=== PATIENT | female | born 1950 | race Caucasian/White ===

== ENCOUNTER → 2020-09-15 | Outpatient (CLI) | payer MEDICARE ==
[~2020-09-15] MED LIST: AMLO5 PO; ASPI81CH PO; CENTRUM SILVER1 EAC4 PO; CIPR500 PO; CLOP75 PO; GLIP5 PO; LEVO-T112 MCG PO; LISI5 PO; LITH300C PO; METF500 PO; METO25ER PO; NITR.4SL SL; RISP1 PO; VITAMIN D31000 UNIT PO; ZOLP10 PO
== END | disposition home or self-care (01) ==
LOC: LAB SHORT 15:02 → LAB 15:02
DX: R39.15 Urgency of urination (principal)
CPT/HCPCS: 87086

== ENCOUNTER 2021-10-13 09:50 | Observation (INO) | payer MEDICARE ==
[~2021-10-13] VITALS: Ht 152.4 cm; Wt 52.2 kg
[2021-10-13 10:42] LABS: BASOPHILS ABSOLUTE AUTO 0.04 K/mm3 (0.00-0.23); BASOPHILS PERCENT AUTO 1 % (0-2); EOSINOPHILS ABSOLUTE AUTO 0.29 K/mm3 (0.00-0.68); EOSINOPHILS PERCENT AUTO 4 % (0-6); Hematocrit 36.1 % (33.0-51.0); Hemoglobin 12.1 g/dL (11.5-16.0); IMMATURE GRAN ABSOLUTE AUTO 0.02 K/mm3 (0.00-0.10); IMMATURE GRAN PERCENT AUTO 0 % (0-1); LYMPHOCYTES ABSOLUTE AUTO 1.75 K/mm3 (0.84-5.20); LYMPHOCYTES PERCENT AUTO 21 % (21-46); MONOCYTES ABSOLUTE AUTO 0.58 K/mm3 (0.16-1.47); MONOCYTES PERCENT AUTO 7 % (4-13); Mean Corpuscular HGB 29.8 pg (26.0-34.0); Mean Corpuscular HGB Conc 33.5 g/dL (31.5-36.5); Mean Corpuscular Volume 89 fL (80-100); Mean Platelet Volume 11.2 fL (9.1-12.4); NEUTROPHILS ABSOLUTE AUTO 5.58 K/mm3 (1.96-9.15); NEUTROPHILS PERCENT AUTO 68 % (41-73); Platelet Count 249 K/mm3 (150-400); RDW Coefficient Variation 12.2 % (11.7-14.2); RDW Standard Deviation 40.1 fL (35.1-46.3); Red Blood Cell Count 4.06 M/mm3 (3.80-5.20); White Blood Cell Count 8.26 K/mm3 (4.00-11.30)
[2021-10-13 10:59] LABS: Ethanol (Alcohol), Blood, Med <3 mg/dL; Salicylate 5.4 mg/dL (2.8-20.0)
[2021-10-13 11:04] LABS: Lithium 1.34 mmol/L (0.60-1.20)
[2021-10-13 11:15] LABS: Acetaminophen, Random <2.0 ug/mL (10.0-30.0); Alanine Aminotransfer (ALT/SGP 15 U/L (12-78); Albumin/Globulin Ratio 1.2 (0.8-1.8); Alk Phos 73 U/L (50-136); Anion Gap 5 mmol/L (6-16); Aspartate Aminotrans (AST/SGOT 17 U/L (12-37); Bilirubin, Total 0.5 mg/dL (0.1-1.0); Blood Urea Nitrogen 28 mg/dL (8-24); Bun/Creatinine Ratio 20.4 (12.0-20.0); CO2, Blood 24 mmol/L (21-32); Calcium, Blood 9.6 mg/dL (8.5-10.1); Chloride, Blood 108 mmol/L (98-108); Creatinine, Blood 1.37 mg/dL (0.40-1.00); Globulin, Blood 3.3 g/dL (2.2-4.0); Glomerular Filtration Rate 41 (60-); Glucose, Blood 117 mg/dL (70-99); Potassium, Blood 4.1 mmol/L (3.5-5.5); Sodium, Blood 137 mmol/L (136-145); Total Protein, Blood 7.3 g/dL (6.4-8.2)
[2021-10-13 11:42] LABS: Source, Urine Clean Catch
[2021-10-13 12:00] LABS: Appearance, Urine Clear (Clear); Bilirubin, Urine Neg (Neg); Blood, Urine Neg (Neg); Color, Urine Yellow (P-Yellow); Glucose Qualitative, Urine Neg (Neg); Ketones, Urine 1+ (Neg); Leukocyte Esterase, Urine 1+ (Neg); Nitrite, Urine Neg (Neg); Protein, Urine Neg (Neg); Specific Gravity, Urine 1.015 (1.003-1.022); Urobilinogen, Urine NORM (Normal)
[2021-10-13 12:13] LABS: Bacteria Rare /hpf; Red Blood Cells, Urine 0-2 /hpf (0-2); Squamous Epithelial Cells Rare /hpf (Few)
[2021-10-13 12:21] LABS: U Amphetamine Screen Not Detected; U Barbituate Screen Not Detected; U Benzodiazapine Screen Not Detected; U Buprenorphine Screen Not Detected; U Cannabinoids Screen Not Detected; U Cocaine Screen Not Detected; U Methadone Screen Not Detected; U Methamphetamine Screen Not Detected; U Opiates Screen Not Detected; U Oxycodone Screen Not Detected; U Phencyclidine Screen Not Detected; U Propoxyphene Screen Not Detected
[2021-10-13 15:59] LABS: Influenza A, PCR NEGATIVE (NEGATIVE); Influenza B, PCR NEGATIVE (NEGATIVE); Resp Syncytial Virus, PCR NEGATIVE (NEGATIVE); SARS-Cov-2 (COVID-19) PCR, MMC NEGATIVE (NEGATIVE)
== END 2021-10-14 14:03 | disposition home or self-care (01) ==
LOC: ER 09:50 → EOR 09:51
PROVIDERS: Physician Assistant; ADMIT Student in an Organized Health Care Education/Training Program
DX: F31.9 Bipolar disorder, unspecified (principal); Z88.0 Allergy status to penicillin; I25.10 Atherosclerotic heart disease of native coronary artery without angina pectoris; I10 Essential (primary) hypertension; E11.9 Type 2 diabetes mellitus without complications; E03.9 Hypothyroidism, unspecified; F17.200 Nicotine dependence, unspecified, uncomplicated; Z79.82 Long term (current) use of aspirin; Z79.84 Long term (current) use of oral hypoglycemic drugs; Z20.822 Contact with and (suspected) exposure to COVID-19
CPT/HCPCS: 0241U; 36415; 80053; 80178; 81001; 82947; 84484; 85025; 87086; 93005; 93010; 96372; 99285-25; A9270; G0378; G0480; Q3014

== ENCOUNTER → 2022-01-11 | Outpatient (CLI) | payer MEDICARE ==
[~2022-01-11] MED LIST changes: +AMLODIPINE BESYL5 MG PO; +EUTHYROX112 MC1 PO; +LISI20 PO; +Lithium Carbon150 MG PO; +METFORMIN HCL500 M2 PO; +METOPROLOL SUCC25 MG PO; +OLAN10 PO; +OLAN5 PO; +OLAN7.5; +OXCA150 PO; +ROSUVASTATIN CA20 MG PO
[2022-01-11 11:54] LABS: Source, Urine Clean Catch
[2022-01-11 15:13] LABS: Appearance, Urine Clear (Clear); Bilirubin, Urine Neg (Neg); Blood, Urine Neg (Neg); Color, Urine Yellow (P-Yellow); Glucose Qualitative, Urine Neg (Neg); Ketones, Urine 1+ (Neg); Leukocyte Esterase, Urine 1+ (Neg); Nitrite, Urine Neg (Neg); Protein, Urine 1+ (Neg); Specific Gravity, Urine 1.015 (1.003-1.022); Urobilinogen, Urine 1+ (Normal)
[2022-01-11 15:34] LABS: Bacteria Mod /hpf; Granular Casts 0-2 /lpf (0); Hyaline Casts 0-2 /lpf (0-2); Red Blood Cells, Urine 0-2 /hpf (0-2); Squamous Epithelial Cells Few /hpf (Few)
== END | disposition home or self-care (01) ==
LOC: LAB SHORT 10:00 → LAB 10:00
PROVIDERS: Student in an Organized Health Care Education/Training Program
DX: R30.0 Dysuria (principal)
CPT/HCPCS: 81001; 87077; 87086; 87186

== ENCOUNTER → 2022-09-21 | Outpatient (CLI) | payer MEDICARE ==
[2022-09-21 14:07] LABS: Albumin, Blood 3.9 g/dL (3.4-5.0); Bilirubin, Total 0.2 mg/dL (0.1-1.0); Bun/Creatinine Ratio 22.6 (12.0-20.0); Creatinine, Blood 1.06 mg/dL (0.40-1.00); Globulin, Blood 3.8 g/dL (2.2-4.0); Potassium, Blood 5.1 mmol/L (3.5-5.5); Total Protein, Blood 7.7 g/dL (6.4-8.2)
== END ==
LOC: LAB 09:40 → LAB SHORT 09:40
PROVIDERS: Nurse Practitioner Psychiatric/Mental Health
DX: F31.60 Bipolar disorder, current episode mixed, unspecified (principal)
CPT/HCPCS: 80053; 80178

== ENCOUNTER → 2022-10-19 | Outpatient (CLI) | payer BC ==
[2022-10-19 14:24] LABS: Source, Urine Clean Catch
[2022-10-19 15:21] LABS: Appearance, Urine Hazy (Clear); Bilirubin, Urine Neg (Neg); Blood, Urine Neg (Neg); Color, Urine Yellow (P-Yellow); Glucose Qualitative, Urine 2+ (Neg); Ketones, Urine 1+ (Neg); Leukocyte Esterase, Urine 2+ (Neg); Nitrite, Urine Pos (Neg); Protein, Urine 1+ (Neg); Urobilinogen, Urine NORM (Normal)
[2022-10-19 15:39] LABS: Bacteria Many /hpf; Red Blood Cells, Urine 0-2 /hpf (0-2); Squamous Epithelial Cells Few /hpf (Few); Triple Phosphate Crystals Many /hpf
== END | disposition home or self-care (01) ==
LOC: LAB 14:22 → LAB SHORT 14:22
PROVIDERS: Student in an Organized Health Care Education/Training Program
DX: R30.0 Dysuria (principal)
CPT/HCPCS: 81001; 87086

== ENCOUNTER 2023-06-10 07:05 | Day surgery (SDC) | payer MEDICARE ==
[~2023-06-10] VITALS: Ht 157.5 cm; Wt 65.9 kg
[~2023-06-10 07:05] MED LIST changes: +Aspir 8181 MG PO; +BUSPIRONE HCL5 M6; +Bisoprolol Fumar5 MG PO; +LEVOTHYROXINE112 M18; +LEVSOD112 PO; +Oxybutynin Chlor5 M1 PO
[2023-06-10] MEDS ORDERED: DEPAKOTE ER500 M2 PO (07:32)
[2023-06-10] MEDS ORDERED: Heparin Sodium 1000 Units/ML 10ML MDV ONE (07:34)
[2023-06-10] MEDS ORDERED: NS 1,000 ML IV ONE ×2 (07:34→07:47)
[2023-06-10] MEDS ORDERED: GLIP5 PO (07:34)
[2023-06-10] MEDS ORDERED: NiCARdipine HCL 1,000 MCG/5 ML SYR ONE (07:35)
[2023-06-10] MEDS ORDERED: Nitroglycerin 2 MG/20 ML BTL ONE (07:35)
[2023-06-10] MEDS ORDERED: NS 250 ML IV ONE (07:35)
[2023-06-10 07:41] VITALS: BP 107/84
[2023-06-10 07:44] VITALS: BP 107/84
[2023-06-10] MEDS ORDERED: Midazolam HCl 1MG / ML 2ML Vial ONE ×2 (07:46→09:04)
[2023-06-10] MEDS ORDERED: FentaNYL Citrate 50 MCG/ML 2 ML Injection ONE ×2 (07:46→09:04)
[2023-06-10 09:45] VITALS: BP 112/86
[2023-06-10] MEDS ORDERED: Nitroglycerin 0.4 MG SUBL ONE (10:43)
== END 2023-06-10 23:15 | disposition home or self-care (01) ==
LOC: MHTC 07:05
DX: I25.118 Atherosclerotic heart disease of native coronary artery with other forms of angina pectoris (principal); I11.9 Hypertensive heart disease without heart failure; E11.9 Type 2 diabetes mellitus without complications; E78.5 Hyperlipidemia, unspecified; E03.9 Hypothyroidism, unspecified; J44.9 Chronic obstructive pulmonary disease, unspecified; Z88.0 Allergy status to penicillin; Z88.8 Allergy status to other drugs, medicaments and biological substances; Z91.02 Food additives allergy status; Z91.048 Other nonmedicinal substance allergy status; Z79.82 Long term (current) use of aspirin; Z79.899 Other long term (current) drug therapy; Z79.890 Hormone replacement therapy
CPT/HCPCS: 76937; 93459; 99152; 99153; A9270; C1769; C1887; C1894; J1644; J2250; J3010; J7030; J7050; Q9967

== ENCOUNTER → 2024-01-03 | Outpatient (CLI) | payer MEDICARE ==
[~2024-01-03] MED LIST changes: +ASPI325EC PO; +BUSPIRONE HCL5 M6 PO; +DAPAGLIFLOZIN5 MG PO; +DEPAKOTE ER500 M2 PO; +OLANZAPINE5 M1 PO
[2024-01-03 16:25] LABS: Albumin, Blood 3.7 g/dL (3.4-5.0); Bilirubin, Total 0.4 mg/dL (0.1-1.0); Bun/Creatinine Ratio 23.7 (12.0-20.0); Calcium, Blood 8.9 mg/dL (8.5-10.1); Creatinine, Blood 1.31 mg/dL (0.40-1.00); Globulin, Blood 3.6 g/dL (2.2-4.0); Potassium, Blood 4.5 mmol/L (3.5-5.5); Total Protein, Blood 7.3 g/dL (6.4-8.2)
== END | disposition home or self-care (01) ==
LOC: LAB SHORT 14:35 → LAB 14:35
PROVIDERS: Nurse Practitioner Psychiatric/Mental Health
DX: N18.30 Chronic kidney disease, stage 3 unspecified (principal); Z79.899 Other long term (current) drug therapy
CPT/HCPCS: 80053

== ENCOUNTER 2024-01-16 21:48 | Inpatient (IN) | payer MEDICARE ==
[~2024-01-16] VITALS: Ht 157.5 cm; Wt 63.1 kg
[2024-01-16] MEDS ORDERED: Glucagon 1 MG/KIT VIAL IV ONE (22:45)
[2024-01-16 23:42] LABS: BASOPHILS ABSOLUTE AUTO 0.03 K/mm3 (0.00-0.23); BASOPHILS PERCENT AUTO 0 % (0-2); EOSINOPHILS ABSOLUTE AUTO 0.22 K/mm3 (0.00-0.68); EOSINOPHILS PERCENT AUTO 3 % (0-6); Hematocrit 30.6 % (33.0-51.0); Hemoglobin 10.1 g/dL (11.5-16.0); IMMATURE GRAN ABSOLUTE AUTO 0.03 K/mm3 (0.00-0.10); IMMATURE GRAN PERCENT AUTO 0 % (0-1); LYMPHOCYTES ABSOLUTE AUTO 1.16 K/mm3 (0.84-5.20); LYMPHOCYTES PERCENT AUTO 16 % (21-46); MONOCYTES ABSOLUTE AUTO 0.67 K/mm3 (0.16-1.47); MONOCYTES PERCENT AUTO 9 % (4-13); Mean Corpuscular HGB 29.8 pg (26.0-34.0); Mean Corpuscular Volume 90 fL (80-100); Mean Platelet Volume 11.4 fL (9.1-12.4); NEUTROPHILS ABSOLUTE AUTO 5.06 K/mm3 (1.96-9.15); NEUTROPHILS PERCENT AUTO 71 % (41-73); Platelet Count 203 K/mm3 (150-400); RDW Standard Deviation 46.7 fL (35.1-46.3); Red Blood Cell Count 3.39 M/mm3 (3.80-5.20); White Blood Cell Count 7.17 K/mm3 (4.00-11.30)
[2024-01-17 00:27] LABS: Albumin, Blood 3.5 g/dL (3.4-5.0); Albumin/Globulin Ratio 1.1 (0.8-1.8); Bilirubin, Total 0.3 mg/dL (0.1-1.0); Bun/Creatinine Ratio 27.6 (12.0-20.0); Calcium, Blood 9.1 mg/dL (8.5-10.1); Creatinine, Blood 1.85 mg/dL (0.40-1.00); Globulin, Blood 3.3 g/dL (2.2-4.0); Potassium, Blood 3.9 mmol/L (3.5-5.5); Total Protein, Blood 6.8 g/dL (6.4-8.2)
[2024-01-17] MEDS ORDERED: NS 1,000 ML IV SCH (01:05)
[2024-01-17] MEDS ORDERED: Ondansetron HCl 2 MG / ML 2ML Vial IV PRN (02:45)
[2024-01-17] MEDS ORDERED: FLU VACC TS2024-25(6MOS UP)/PF 45 MCG/0.5 ML SYRINGE IM ONE (02:45)
[2024-01-17] MEDS ORDERED: Clopidogrel Bisulfate 75 MG Tab PO SCH (03:00)
[2024-01-17] MEDS ORDERED: Atorvastatin 40 MG Tab PO SCH (03:00)
[2024-01-17] MEDS ORDERED: Aspirin 81 MG Chew PO SCH (03:00)
[2024-01-17 03:31] LABS: U Amphetamine Screen Not Detected; U Barbituate Screen Not Detected; U Benzodiazapine Screen Not Detected; U Buprenorphine Screen Not Detected; U Cannabinoids Screen Not Detected; U Cocaine Screen Not Detected; U Methadone Screen Not Detected; U Methamphetamine Screen Not Detected; U Opiates Screen Not Detected; U Oxycodone Screen Not Detected; U Phencyclidine Screen Not Detected
[2024-01-17 04:16] LABS: Source, Urine Foley catheter
[2024-01-17] MEDS ORDERED: LORazepam 2 MG/ML 1ML Injection IV ONE ×2 (04:40→10:50)
[2024-01-17 04:43] LABS: Bilirubin, Urine Neg (Neg); Blood, Urine Neg (Neg); Glucose Qualitative, Urine 4+ (Neg); Ketones, Urine Neg (Neg); Leukocyte Esterase, Urine Neg (Neg); Nitrite, Urine Neg (Neg); Protein, Urine 2+ (Neg); Urobilinogen, Urine NORM (Normal)
[2024-01-17 04:44] LABS: Appearance, Urine Clear (Clear); Color, Urine Pale Yellow (P-Yellow)
[2024-01-17 04:45] LABS: Bacteria Few /hpf; Red Blood Cells, Urine 0-2 /hpf (0-2); Squamous Epithelial Cells Few /hpf (Few); White Blood Cells, Urine 0-2 /hpf (0-5)
[2024-01-17 04:49] LABS: International Normalized Ratio 0.99; Prothrombin Time Results 10.6 Sec (9.7-11.5)
[2024-01-17 05:49] LABS: BASOPHILS ABSOLUTE AUTO 0.02 K/mm3 (0.00-0.23); BASOPHILS PERCENT AUTO 0 % (0-2); EOSINOPHILS ABSOLUTE AUTO 0.23 K/mm3 (0.00-0.68); EOSINOPHILS PERCENT AUTO 4 % (0-6); Hematocrit 28.8 % (33.0-51.0); Hemoglobin 9.3 g/dL (11.5-16.0); IMMATURE GRAN ABSOLUTE AUTO 0.02 K/mm3 (0.00-0.10); IMMATURE GRAN PERCENT AUTO 0 % (0-1); LYMPHOCYTES ABSOLUTE AUTO 1.03 K/mm3 (0.84-5.20); LYMPHOCYTES PERCENT AUTO 16 % (21-46); MONOCYTES ABSOLUTE AUTO 0.58 K/mm3 (0.16-1.47); MONOCYTES PERCENT AUTO 9 % (4-13); Mean Corpuscular HGB 29.4 pg (26.0-34.0); Mean Corpuscular HGB Conc 32.3 g/dL (31.5-36.5); Mean Corpuscular Volume 91 fL (80-100); Mean Platelet Volume 11.3 fL (9.1-12.4); NEUTROPHILS ABSOLUTE AUTO 4.46 K/mm3 (1.96-9.15); NEUTROPHILS PERCENT AUTO 71 % (41-73); Platelet Count 176 K/mm3 (150-400); RDW Standard Deviation 46.8 fL (35.1-46.3); Red Blood Cell Count 3.16 M/mm3 (3.80-5.20); White Blood Cell Count 6.34 K/mm3 (4.00-11.30)
[2024-01-17 06:06] LABS: Bun/Creatinine Ratio 27.2 (12.0-20.0); Calcium, Blood 8.3 mg/dL (8.5-10.1); Creatinine, Blood 1.62 mg/dL (0.40-1.00); Magnesium, Blood 2.1 mg/dL (1.6-2.4); Potassium, Blood 3.8 mmol/L (3.5-5.5)
[2024-01-17 08:14] VITALS: BP 160/73
[2024-01-17] MEDS ORDERED: Heparin Sodium 5000 Units/ML 1ML MDV IV ONE (08:20)
[2024-01-17] MEDS ORDERED: Heparin Sodium,Porcine/0.5 NS 500 ML IV SCH (08:20)
[2024-01-17] MEDS ORDERED: Enoxaparin 40 MG/0.4 ML SYR SC SCH (09:00)
[2024-01-17] MEDS ORDERED: Famotidine 10 MG/ML 2ML Vial IV SCH (09:00)
[2024-01-17 13:37] LABS: Lithium 0.27 mmol/L (0.60-1.20)
--- NOTE | 2024-01-17 13:38 | NUR ---
ADMISSION NOTE: PATIENT ARRIVED AT THE UNIT AT 0810 VIA GURNEY AND WAS TRANSFERRED ONTO BED. PATIENT WAS SETTLED IN ROOM, CALL LIGHT PROVIDED, AND BED ALARM SET. NO SIGNS OR SYMPTOMS OF DISTRESS, PLAN OF CARE ONGOING.
[2024-01-17] MEDS ORDERED: Metoprolol Succinate 25 MG TABCR PO SCH (15:00)
[2024-01-17 15:24] VITALS: BP 146/77
--- NOTE | 2024-01-17 17:08 | NUR ---
SHIFT SUMMARY: SHE IS ALERT AND ORIENTED X4, AND IS A 1 PERSON ASSIST. SHE HAS TIMES OF MORE ALERTNESS VERSUS GROGGINESS/LETHARGIC. SHE DID GET ATIVAN TODAY ONCE IN THE ED AND AGAIN PRIOR TO HER MRI; WHICH PUT HER ASLEEP. SHE WAS AROUSABLE, BUT WAS QUICK TO FALL BACK ASLEEP AND HAS BEEN SLEEPING MOST OF THE AFTERNOON. PATIENT WOKEN UP TO TAKE A PHONE CALL FROM HER AND SHE REQUESTED TO DRINK SOME WATER. PATIENT WEAK TO BRING WATER TO HERSELF AND TO ANSWER AND TALK ON THE PHONE. SHE WAS ABLE TO SPEAK WITH HER ON THE PHONE. SHE IS ABLE TO ANSWER ORIENTATION QUESTIONS APPROPRIATELY; SLOW AT TIMES. SHE HAS ATTEMTED TO GET OUT OF BED WITHOUT CALLING; BED ALARM ON, CALL LIGHT WITHIN REACH, NO SIGNS OR SYMPTOMS OF DISTRESS, NO EVENTS ON TELE, MRI/ECHO COMPLETED, HEPARIN DRIP GOING, AND AWAITING CONSULTATION FROM DR. BURNS. PLAN OF CARE ONGOING.
[2024-01-17] MEDS ORDERED: Insulin Human Lispro 100 Units/ML 3ML Syringe SC SCH ×2 (18:00→21:00)
[2024-01-17] MEDS ORDERED: Dose Adjust by Pharmacy XX STA (19:17)
--- NOTE | 2024-01-17 19:43 | NUR ---
Dr. Palomares came in and evaluated the pt. He stated that shes medical management only and she will stay on heparin x 2 days then change to po.
[2024-01-17 20:03] VITALS: BP 123/74
[2024-01-17] MEDS ORDERED: Lithium Carbonate 150 MG Capsule PO SCH (21:00)
[2024-01-17] MEDS ORDERED: Metoprolol Tartrate 25 MG Tab PO SCH ×2 (21:00)
[2024-01-17] MEDS ORDERED: OLANZapine 5 MG Tab PO SCH (21:00)
[2024-01-18] VITALS (7 sets, daily range): BP systolic 98–129; BP diastolic 55–77
[2024-01-18 00:33] LABS: BASOPHILS ABSOLUTE AUTO 0.05 K/mm3 (0.00-0.23); BASOPHILS PERCENT AUTO 1 % (0-2); EOSINOPHILS ABSOLUTE AUTO 0.29 K/mm3 (0.00-0.68); EOSINOPHILS PERCENT AUTO 4 % (0-6); Hematocrit 28.6 % (33.0-51.0); Hemoglobin 9.2 g/dL (11.5-16.0); IMMATURE GRAN ABSOLUTE AUTO 0.02 K/mm3 (0.00-0.10); IMMATURE GRAN PERCENT AUTO 0 % (0-1); LYMPHOCYTES ABSOLUTE AUTO 1.57 K/mm3 (0.84-5.20); LYMPHOCYTES PERCENT AUTO 22 % (21-46); MONOCYTES ABSOLUTE AUTO 0.64 K/mm3 (0.16-1.47); MONOCYTES PERCENT AUTO 9 % (4-13); Mean Corpuscular HGB 29.4 pg (26.0-34.0); Mean Corpuscular HGB Conc 32.2 g/dL (31.5-36.5); Mean Corpuscular Volume 91 fL (80-100); Mean Platelet Volume 11.7 fL (9.1-12.4); NEUTROPHILS ABSOLUTE AUTO 4.59 K/mm3 (1.96-9.15); NEUTROPHILS PERCENT AUTO 64 % (41-73); Platelet Count 174 K/mm3 (150-400); RDW Coefficient Variation 14.1 % (11.7-14.2); Red Blood Cell Count 3.13 M/mm3 (3.80-5.20); White Blood Cell Count 7.16 K/mm3 (4.00-11.30)
[2024-01-18 00:50] LABS: Bun/Creatinine Ratio 25.5 (12.0-20.0); Calcium, Blood 8.3 mg/dL (8.5-10.1); Creatinine, Blood 1.45 mg/dL (0.40-1.00)
[2024-01-18] MEDS ORDERED: Dose Adjust by Pharmacy XX STA (01:07)
--- NOTE | 2024-01-18 04:16 | NUR ---
SHIFT SUMMARY PT ALERT ORIENTED BUT VERY DROWSY. SHE GOT UP TO THE COMMODE WITH 1 PERSON SBA. REMAINS ON TELEMETRY AT S[place] AT 58. NO C/O CHEST PAIN OR PRESSURE THIS SHIFT. CONTINUES ON A CONTINUOUS PULSE OX. VSS ON RA SATTING AT 100%. REMAINS WITH A ESTEBAN CATHETER DRAINING RHETT URINE. SHE HAD LABS DONE AT 0030 AND HER HEPARIN WAS AT 0.44. PHARMACY STATED TO CONTINUE ON THE SAME RATE ON HEPARIN. SHE REMAINS AT 15U/KG/HR OR 18.9ML/HR. SHES DUE TO HAVE ANOTHER LAB DONE ON 01/18 AT 0100. CARDIOLOGY CONSULT WAS DONE AND STATED THAT HE WILL CONTINUE HER ON THE HEPARIN DRIP X 2 DAYS THEN SWITCH TO PO. HE STATED THAT SHE CAN ONLY DO MEDICALLY MANAGEMENT. SHE HAD A XLG BM THIS SHIFT. FS DONE AC AND HS WAS 143. NEURO CHECKS GOOD WITH NO DEFECITS SEEN. NO PROBLEMS WITH SPEECH. RESTING IN BED AT THIS TIME WITH CALL LIGHT IN REACH AND BED ALARM ON
[2024-01-18] MEDS ORDERED: Furosemide 10 MG/ML 4ML Vial IV SCH (09:00)
[2024-01-18] MEDS ORDERED: Aspirin 81 MG Chew PO SCH (09:00)
[2024-01-18] MEDS ORDERED: ASPI81CH PO (11:36)
--- NOTE | 2024-01-18 17:24 | NUR ---
SHIFT SUMMARY: PT AOX3-4 WITH WAXING AND WANNING BEHAVIORAL OUTBURSTS. EASILY REDIRECTABLE AND THEN VERY PLEASANT. PT SAW AND RULED HER A 1PA. PT HAD ESTEBAN REMOVED IN THE AFTERNOON AFTER NOT WANTING TO GET OUT OF THE CHAIR THROUGHOUT THE DAY. HASNT VOIDED ON HER OWN YET. ONLY NEEDED INSULIN ONE TIME, BLOOD SUGARS HAVE BEEN WELL UNDER CONTROL ON CURRENT REGIMENT. TOLERATING MEDICATION WELL. HEPARIN DRIP STILL RUNNING. PT ANXIOUS AND PLEASANT AT TIMES. PT CURRENTLY RESTING IN BED, CALL LIGHT IN REACH, BED IN LOWEST POSITION. CONTINUINIG CARE.
--- NOTE | 2024-01-18 17:35 | NUR ---
CALLED DR. SHAUN LOERA AND REQUESTING A PRN FOR THE PATIENT'S EMAR FOR PAIN AND TO REVIEW THE UPDATED MED REC. PATIENT AND HER WERE INQUIRING ABOUT THE PATIENT'S ACTIVE CASE OF ONYCHOMYCOSIS AND THAT SHE FOLLOWS DR. BACA AND HAS BEEN ON TERBINAFINE FOR THE LAST 2.5 MONTHS AND HAS 2 MORE DAYS OF TREATMENT LEFT AND SUPPOSED TO FOLLOW UP WITH DR. BACA ON SATURDAY. ADVISED THE PATIENT AND HER TO CALL DR. BACA'S OFFICE SATURDAY MORNING AND DISCUSS WITH HIM; ESPECIALLY IF PATIENT IS STILL IN THE HOSPITAL AND CANNOT MAKE THE APPT. THIS WAS NOTIFIED AND DISCUSSED WITH DR. SHAUN LOERA.
[2024-01-18] MEDS ORDERED: Nitroglycerin 0.4 MG SUBL SL PRN (18:05)
[2024-01-18] MEDS ORDERED: HYDROcodone 5-APAP 325 TAB PO PRN (18:05)
[2024-01-18] MEDS ORDERED: NS 250 ML IV ONE (20:00)
[2024-01-18] MEDS ORDERED: Midodrine 5 MG Tab PO ONE (20:00)
[2024-01-18] MEDS ORDERED: Midodrine 5 MG Tab PO PRN (20:00)
--- NOTE | 2024-01-18 22:25 | NUR ---
SHIFT SUMMARY: CALLED DOCTOR AT 1930 BECAUSE OF PT'S LOW BP AND HR. DR WANTED TO REVIEW CHART AND TELE TRACING. DR ORDERED ONE TIME MEDICATION OF PROAMATINE AND A 250 ML FLUID BOLUS. RECHECKED BP AND HEART RATE AFTER INTERVENTIONS AND THERE IS IMPROVEMENT.
--- NOTE | 2024-01-18 23:51 | NUR ---
I CONTACTED THE HOSPITALIST DILIP ABOUT PT'S HR STILL CONTINUING TO BE IN THE MID 40'S TO LOW 50'S. DR ADJUSTED HER MOTOPORLOL RATE TO 12.5 AND SAID HE WOULD REVIEW TELE STRIP AND LONG PT IS NOT SYMPTOMATIC THEN WE WILL MONITOR TELE AND HE WOULD ALSO TALK TO DR AYON WHO IS TAKING OVER FOR DR CHERRY. I ALSO CONTACTED HYDROTECHNICAL SPECIALIST TO LET ME KNOW IF ANY SIGNIFICANT FINDINGS HAPPEN. I CALLED AT 1130.PT IS SOUND ASLEEP NOW AND NO NEW SYMPTOMS. BP WAS WNL.
[2024-01-19 01:01] LABS: BASOPHILS ABSOLUTE AUTO 0.02 K/mm3 (0.00-0.23); BASOPHILS PERCENT AUTO 0 % (0-2); EOSINOPHILS ABSOLUTE AUTO 0.32 K/mm3 (0.00-0.68); EOSINOPHILS PERCENT AUTO 5 % (0-6); Hematocrit 29.7 % (33.0-51.0); Hemoglobin 9.7 g/dL (11.5-16.0); IMMATURE GRAN ABSOLUTE AUTO 0.02 K/mm3 (0.00-0.10); IMMATURE GRAN PERCENT AUTO 0 % (0-1); LYMPHOCYTES ABSOLUTE AUTO 1.25 K/mm3 (0.84-5.20); LYMPHOCYTES PERCENT AUTO 18 % (21-46); MONOCYTES ABSOLUTE AUTO 0.56 K/mm3 (0.16-1.47); MONOCYTES PERCENT AUTO 8 % (4-13); Mean Corpuscular HGB 29.4 pg (26.0-34.0); Mean Corpuscular HGB Conc 32.7 g/dL (31.5-36.5); Mean Corpuscular Volume 90 fL (80-100); NEUTROPHILS ABSOLUTE AUTO 4.73 K/mm3 (1.96-9.15); NEUTROPHILS PERCENT AUTO 69 % (41-73); Platelet Count 172 K/mm3 (150-400); RDW Coefficient Variation 14.1 % (11.7-14.2); RDW Standard Deviation 46.5 fL (35.1-46.3)
[2024-01-19 01:24] LABS: Bilirubin, Total 0.3 mg/dL (0.1-1.0); Bun/Creatinine Ratio 23.1 (12.0-20.0); Calcium, Blood 8.5 mg/dL (8.5-10.1); Creatinine, Blood 1.69 mg/dL (0.40-1.00); Globulin, Blood 2.9 g/dL (2.2-4.0); Potassium, Blood 4.3 mmol/L (3.5-5.5); Total Protein, Blood 5.9 g/dL (6.4-8.2)
[2024-01-19] MEDS ORDERED: Dose Adjust by Pharmacy XX STA (01:45)
[2024-01-19 04:19] VITALS: BP 108/55
--- NOTE | 2024-01-19 04:42 | NUR ---
SHIFT SUMMARY: PT IS A KALINA 73 YO FULL CODE. PT IS ON A CONT HIPARIN DRIP AND IS ON TELE WITH CORRIE SINUS OFTEN IN THE 50'S. UPON COMING ON TO SHIFT PT WAS EXPERIENCING BRADYCARDIA AND HYPOTENSION SHE RECEIVED MEDICATION PROAMATINE AND A FLUID BOLUS (SEE PREV NOTES).PT HAS BEEN INCONT ALL NIGHT AND WEARING AN ATTENDS. PT GETS ANXIOUS AND OFTEN CALLS OUT AND SAYS "HELP" PT WILL NOT USE CALL LIGHT NEEDED. PT HAD A FRIEND VISIT AT THE BEGINNING OF THE SHIFT AND THIS MADE PT HAPPY. PT IS ACHS AND DID NOT REQUIRE INSULIN THIS EVENING. PT HAS HAD A SMEAR BM AND A RED BOTTOM. PT IS ON TELE AND RA AT THIS TIME.PT OFTEN NEEDS REASSURANCE THAT SHE IS OKAY AND IS PLEASANTLY CONFUSED. PT HAS NOT TRIED TO GET OUT OF BED AND BED ALARM IS SET. CALL LIGHT IN REACH
[2024-01-19] MEDS ORDERED: Levothyroxine Sodium 0.112 MG Tab PO SCH (06:00)
[2024-01-19 06:30] VITALS: BP 122/58
--- NOTE | 2024-01-19 06:35 | NUR ---
PT AWOKE VERY CONFUSED NOT KNOWING WHERE SHE WAS AT AND VERY ANGRY I REASSURED PT THAT SHE WAS OKAY AND SHE ASKED WHERE HER NURSE WAS AND WHEN I SAID IM YOUR NURSE SHE REPLIED WITH "NO, I SAID NERVE, [id number]" SHE WANTS TO KNOW WHEN SHE WILL GET HER NERVE BACK IS WHAT SHE STATES. I WAS ABLE TO CALM HER DOWN AND SHE IS NOW ASLEEP BUT WAS MORE AGITATED THAN USUAL AND UPSET THAT HER LITHIUM WAS NOT DUE TO BE GIVEN YET. PT HAS CALL LIGHT IN REACH.
[2024-01-19 07:43] VITALS: BP 122/69
[2024-01-19] MEDS ORDERED: GlipiZIDE 10 MG Tab PO SCH (08:00)
[2024-01-19] MEDS ORDERED: Metoprolol Succinate 25 MG TABCR PO SCH (09:00)
[2024-01-19 15:40] VITALS: BP 129/67
--- NOTE | 2024-01-19 16:52 | NUR ---
SUMMARY NO ACUTE CHANGES THIS SHIFT. PT HAS INTERMITTENT EPISODES OF YELLING OUT, EXPRESSING FEAR, NON SENSICAL. EASILY REDIRECTED. 1 ASSIST WITH FWW. PT NEEDS DIRECTION WITH AMBULATION. LARGE BM USE OF BSC. USES CALL LIGHT SOMETIMES. PLAN IS DISCHARGE TO SNF
[2024-01-19 20:01] VITALS: BP 126/51
[2024-01-20 02:09] VITALS: BP 109/62
[2024-01-20 05:40] LABS: Hematocrit 31.3 % (33.0-51.0); Hemoglobin 10.4 g/dL (11.5-16.0)
[2024-01-20 06:08] LABS: Calcium, Blood 8.8 mg/dL (8.5-10.1); Creatinine, Blood 1.72 mg/dL (0.40-1.00); Potassium, Blood 4.1 mmol/L (3.5-5.5)
--- NOTE | 2024-01-20 06:23 | NUR ---
PT VITAL SIGNS STABLE THROUGHOUT SHIFT. PT IS ANXIOUS ABOUT ANY CHANGE TO ENVIRONMENT OR HERSELF. PT DOES TAKE PILLS WHOLE WITH WATER W/O PROBLEM. PT IS ABLE TO USE CALL LIGHT AND MAKE NEEDS KNOWN. PT HAS HAD SEVERAL EPISODES OF INCONTIENT URINE THIS SHIFT. NO C/O BURNING OR PAIN WITH URINATION. PT DOES HAVE UNUSUAL UTTERANCES REGARDING FOREIGN OBJECTS BEING INSERTED INTO VAGINA. PT DOES NOT APPEAR TO BE SAYING THIS IN A SEXUAL WAY, SOMETIMES ITS IN REGARDS TO HER FREQUENT INCONTINENCE AND OTHERS IS RANDOM. PT IS AOX4 BUT AFFECT IS VERY ODD. SOME OF THE C/O INCONTINENCE BY PT HAVE BEEN FALSE ALARMS. PT HAS VERY GOOD BED MOBILITY WHEN DIRECTED AND IS ABLE TO MOVE SIDE TO SIDE UNASSISTED. NEURO CHECKS REMAIN UNCHANGED THROUGHOUT SHIFT.
[2024-01-20 07:29] VITALS: BP 134/60
[2024-01-20] MEDS ORDERED: Furosemide 40 MG Tab PO SCH (09:00)
[2024-01-20] MEDS ORDERED: CLOP75 PO (12:25)
[2024-01-20] MEDS ORDERED: OLAN5 PO (12:26)
[2024-01-20] MEDS ORDERED: METO25ER PO (12:26)
--- NOTE | 2024-01-20 19:56 | NUR ---
DISCHARGE SUMMARY: A&Ox4. [id number] THOUGH-PROCESS AND REQUIRES FREQUENT REDIRECTION. FIXATED ON IDEAS. SBA c FWW. MEDS WHOLE WITH FLUIDS. INCONTINENT OF URINE SECONDARY TO URINARY FREQUENCY AND POLYURIA. VERY ANXIOUS ABOUT DISCHARGING HOME. ADAMATE SHE NEEDED TO GO HOME AND NOT SNF D/T LONG DRIVE FOR HIM. PATIENT EVENTUALLY AGREEABLE BUT CONTINUED TO VOICE ANXEITY, BUT STATING SHE WANTED TO GO HOME. MEDS FAXED TO [facility]. LEFT FLOOR WITH ALL BELONGINSG AND DISCHARGE PACKET, ESCORTED BY , ALSO PROVIDIN TRANSPORTATION.
== END 2024-01-20 13:00 | disposition home health service (06) | DRG 280 ==
LOC: ER 21:48 → ERHOLD 01-17 04:06 → MEDS 01-17 04:06 → ERHOLD 01-17 04:06 → MEDS 01-17 08:13
PROVIDERS: Family Medicine; Hospitalist; Student in an Organized Health Care Education/Training Program; ADMIT Internal Medicine
DX: I21.4 Non-ST elevation (NSTEMI) myocardial infarction (principal); I50.43 Acute on chronic combined systolic (congestive) and diastolic (congestive) heart failure; N17.9 Acute kidney failure, unspecified; R33.9 Retention of urine, unspecified; F31.9 Bipolar disorder, unspecified; E11.9 Type 2 diabetes mellitus without complications; I25.10 Atherosclerotic heart disease of native coronary artery without angina pectoris; I34.0 Nonrheumatic mitral (valve) insufficiency; Z95.1 Presence of aortocoronary bypass graft; E03.9 Hypothyroidism, unspecified; G47.30 Sleep apnea, unspecified; I11.0 Hypertensive heart disease with heart failure; E78.5 Hyperlipidemia, unspecified; F17.210 Nicotine dependence, cigarettes, uncomplicated; Z88.0 Allergy status to penicillin; Z88.8 Allergy status to other drugs, medicaments and biological substances; Z79.82 Long term (current) use of aspirin; Z79.84 Long term (current) use of oral hypoglycemic drugs; Z79.890 Hormone replacement therapy; Z79.899 Other long term (current) drug therapy; R06.02 Shortness of breath; G47.33 Obstructive sleep apnea (adult) (pediatric); D64.9 Anemia, unspecified
CPT/HCPCS: 36415; 51702; 51798; 70450; 70496; 70498; 70551; 76770; 80048; 80053; 80178; 81001; 82947; 83735; 84484; 85014; 85018; 85025; 85520; 85610; 85730; 92610; 93005; 93010; 93880; 94762; 96361; 96374; 96375; 96376; 97116; 97161; 97530; 99285-25; A9270; C8929; G0378; J1644; J1940; J2060; J7030; J7050; Q9957; Q9967

== ENCOUNTER → 2024-01-16 | Outpatient (CLI) | payer MEDICARE ==
[~2024-01-16] MED LIST changes: +GLIP10 PO
[2024-01-16 10:46] LABS: Source, Urine Voided
[2024-01-16 11:46] LABS: Appearance, Urine Clear (Clear); Bilirubin, Urine Neg (Neg); Blood, Urine 1+ (Neg); Color, Urine Yellow (P-Yellow); Glucose Qualitative, Urine 4+ (Neg); Ketones, Urine 1+ (Neg); Leukocyte Esterase, Urine Neg (Neg); Nitrite, Urine Neg (Neg); Protein, Urine 2+ (Neg); Specific Gravity, Urine 1.015 (1.003-1.022); Urobilinogen, Urine NORM (Normal)
[2024-01-16 12:11] LABS: Bacteria Rare /hpf; Hyaline Casts 0-2 /lpf (0-2); Squamous Epithelial Cells Few /hpf (Few); White Blood Cells, Urine 0-2 /hpf (0-5)
== END | disposition home or self-care (01) ==
LOC: LAB 10:41 → LAB SHORT 10:41
PROVIDERS: Student in an Organized Health Care Education/Training Program
DX: R39.15 Urgency of urination (principal)
CPT/HCPCS: 81001

== ENCOUNTER 2024-01-22 01:11 | Emergency (ER) | payer MEDICARE ==
[~2024-01-22] VITALS: Ht 157.5 cm; Wt 62.1 kg
[2024-01-22 01:28] LABS: BASOPHILS ABSOLUTE AUTO 0.02 K/mm3 (0.00-0.23); BASOPHILS PERCENT AUTO 0 % (0-2); EOSINOPHILS ABSOLUTE AUTO 0.16 K/mm3 (0.00-0.68); EOSINOPHILS PERCENT AUTO 2 % (0-6); Hematocrit 28.3 % (33.0-51.0); Hemoglobin 9.3 g/dL (11.5-16.0); IMMATURE GRAN ABSOLUTE AUTO 0.03 K/mm3 (0.00-0.10); IMMATURE GRAN PERCENT AUTO 0 % (0-1); LYMPHOCYTES ABSOLUTE AUTO 0.85 K/mm3 (0.84-5.20); LYMPHOCYTES PERCENT AUTO 9 % (21-46); MONOCYTES ABSOLUTE AUTO 0.78 K/mm3 (0.16-1.47); MONOCYTES PERCENT AUTO 8 % (4-13); Mean Corpuscular HGB 29.8 pg (26.0-34.0); Mean Corpuscular HGB Conc 32.9 g/dL (31.5-36.5); Mean Corpuscular Volume 91 fL (80-100); Mean Platelet Volume 11.8 fL (9.1-12.4); NEUTROPHILS ABSOLUTE AUTO 7.96 K/mm3 (1.96-9.15); NEUTROPHILS PERCENT AUTO 81 % (41-73); Platelet Count 170 K/mm3 (150-400); RDW Coefficient Variation 14.1 % (11.7-14.2); RDW Standard Deviation 46.7 fL (35.1-46.3); Red Blood Cell Count 3.12 M/mm3 (3.80-5.20)
[2024-01-22 01:58] LABS: Albumin, Blood 3.2 g/dL (3.4-5.0); Bilirubin, Total 0.2 mg/dL (0.1-1.0); Bun/Creatinine Ratio 29.6 (12.0-20.0); Calcium, Blood 8.6 mg/dL (8.5-10.1); Creatinine, Blood 1.52 mg/dL (0.40-1.00); Globulin, Blood 3.1 g/dL (2.2-4.0); Potassium, Blood 4.1 mmol/L (3.5-5.5); Total Protein, Blood 6.3 g/dL (6.4-8.2)
[2024-01-22] MEDS ORDERED: HyDROXyzine HCl 25 MG Tab PO ONE (02:30)
[2024-01-22] MEDS ORDERED: Lidocaine 4% 1 Patch TOP ONE (02:30)
[2024-01-22 03:30] VITALS: BP 119/56
== END 2024-01-22 04:38 | disposition home or self-care (01) ==
LOC: ER 01:11
PROVIDERS: Emergency Medicine
DX: F41.0 Panic disorder [episodic paroxysmal anxiety] (principal); G47.33 Obstructive sleep apnea (adult) (pediatric); D64.9 Anemia, unspecified; F17.200 Nicotine dependence, unspecified, uncomplicated; E11.9 Type 2 diabetes mellitus without complications; I10 Essential (primary) hypertension; E03.9 Hypothyroidism, unspecified; Z79.02 Long term (current) use of antithrombotics/antiplatelets; Z79.82 Long term (current) use of aspirin; Z79.899 Other long term (current) drug therapy; Z88.2 Allergy status to sulfonamides; Z88.8 Allergy status to other drugs, medicaments and biological substances; Z91.018 Allergy to other foods
CPT/HCPCS: 36415; 80053; 85025; 99285-25; A9270